=== PATIENT | female | born 1960 | race Caucasian/White ===

== ENCOUNTER 2021-12-27 09:30 | Observation (INO) ==
[2021-12-27 09:29] VITALS: BMI 31.3
[~2021-12-27 09:30] MED LIST: ANCEF VIAL 1 GRAM ONE; LR 1,000 ML IV 1,000 ML IV ONE; NS 100 ML IV 100 ML ONE
[2021-12-27] MEDS ORDERED: VERSED ONE (09:46)
[2021-12-27] MEDS ORDERED: NAROPIN 0.75% EPI ONE (09:46)
[2021-12-27] MEDS ORDERED: MARCAINE 0.25% INJ ONE (10:51)
[2021-12-27] MEDS ORDERED: FENTANYL VIAL INJ 100 mcg ONE (10:57)
[2021-12-27] MEDS ORDERED: PEPCID 20 MG VIAL ONE (10:57)
[2021-12-27] MEDS ORDERED: ZOFRAN INJ 4 MG VIAL ONE (10:57)
[2021-12-27] MEDS ORDERED: PRECEDEX INJ VIAL IVP ONE (10:57)
[2021-12-27] MEDS ORDERED: DIPRIVAN VIAL 20 ML ONE (10:57)
[2021-12-27] MEDS ORDERED: BENADRYL INJ 50 MG VIAL ONE (10:58)
[2021-12-27] MEDS ORDERED: KETAMINE HCL ONE (11:07)
[2021-12-27] MEDS ORDERED: BENADRYL INJ 50 MG VIAL IVP PRN (13:24)
[2021-12-27] MEDS ORDERED: BARHEMSYS INJ IVP PRN (13:24)
[2021-12-27] MEDS ORDERED: PHENERGAN INJ 25 MG IM PRN (13:24)
[2021-12-27] MEDS ORDERED: DILAUDID INJ IVP PRN (13:24)
[2021-12-27] MEDS ORDERED: REGLAN INJ 10 MG VIAL IVP PRN (13:24)
[2021-12-27] MEDS ORDERED: ZOFRAN INJ 4 MG VIAL IVP PRN ×2 (13:24→13:44)
[2021-12-27] MEDS ORDERED: ROXICODONE TAB 5 MG PO PRN (13:48)
[2021-12-27] MEDS ORDERED: NS 1,000 ML IV 1,000 ML IV SCH (14:00)
[2021-12-27] MEDS: NS 1,000 ML IV 1,000 ML IV SCH (14:20)
[2021-12-27] MEDS: DILAUDID INJ IVP SCH ×3 (15:40→21:30)
[2021-12-27] MEDS ORDERED: COLACE CAP 100 MG PO SCH (21:00)
[2021-12-28] MEDS: DILAUDID INJ IVP SCH ×2 (02:05→06:14)
[2021-12-28] MEDS: NS 1,000 ML IV 1,000 ML IV SCH (03:08)
[2021-12-28 06:17] LABS: BLOOD UREA NITROGEN 14 mg/dL (7-18); CALCIUM 7.7 mg/dL (8.5-10.1); CARBON DIOXIDE 28.3 mmol/L (21-32); CHLORIDE 101 mmol/L (98-107); CREATININE 1.04 mg/dL (0.55-1.02); SODIUM 135 mmol/L (136-145); eGFR NON BLACK RACES 57 (>60)
[2021-12-28] MEDS ORDERED: ULTRAM PO PRN (08:08)
--- NOTE | 2021-12-28 08:31 | NOTE.SOAP ---
Soap Note Note for Day of Date of Exam: 12/28/21 Subjective Data Subjective Data: Patient seen bedside. NAD. CFT intatnt to toes. block has not worn off. pain minimal. + strikethrough at bone harvest site on knee. dressing other pearson intact iwthout issue. No acute events over night. has been using IS. Objective Data Objective Data: dressing clean and intact with minimal strikethrough. block still working. no upper calf or leg pain. Assessment Assessment: 61 F/ POD #1 from hindfoot fusion with IMN and bone harvest tibia. Plan Plan: 1. Block still working. will await her to be able to move toes which will likely be around lunch time. if doing well and pain controlled will D/C to home. 2. pain controlled currently with block. - discussed home regimen. will rx for tramadol. will give rx for a few dilaudid 2mg tabs to go home with as has codeine allergy. 3. Dressing changed this am. no active bleeding. no signs of hematoma. well padded posterior ankle and placed back in splint. remain NWB. 4. RX for lovenox for DVT prophylaxis. 5. D/C to home later today if pain doing well after block.
[2021-12-28] MEDS ORDERED: LOVENOX INJ 40 MG SYR SC SCH (09:00)
[2021-12-28 12:22] VITALS: BP 156/83
== END 2021-12-28 12:25 | disposition home or self-care (01) ==
LOC: MED/SURG → EDUNIT# 09:30
PROVIDERS: ADMIT Obstetrics & Gynecology Obstetrics; ATTEND Obstetrics & Gynecology Obstetrics
DX: M24.572 Contracture, left ankle; M19.072 Primary osteoarthritis, left ankle and foot; M21.072 Valgus deformity, not elsewhere classified, left ankle